=== PATIENT | male | born 1965 | race Caucasian/White ===

== ENCOUNTER 2021-03-14 08:14 | Observation (INO) | payer OTHER, SELFPAY ==
[2021-03-14] VITALS (29 sets, daily range): BP systolic 113–157; BP diastolic 61–105; PULSE 84–163; RESP 11–20; TEMP 36.2–36.6; O2SAT 94–97; BMI 33.3; BMI 32.1
--- NOTE | 2021-03-14 08:27 | ED_ITS ---
HPI - Neuro Symptoms/Deficit General Chief Complaint: Altered Mental Status Stated Complaint: problems with blood pressure, dizzy, burning chest Time Seen by Provider: 03/14/21 08:20 History of Present Illness HPI Narrative: Code stroke called at 8:25 a.m. patient awoke 4:00 a.m. this mor driss with left facial and left arm numbness with left-sided chest pain. Patient states has had this recurrence episode each morning for the past 3 days. His primary care at the [facility] informed him to monitor his blood pressure in the mornings and keep a journal. His home journal does show elevation of his diastolic between 90-110 on average each measurement. Patient has history of diabetes high blood pressure and hypercholesteremia. Family history of stroke and coronary artery disease. Patient has never had stress test. No weakness complaints. No headache. No syncope. Symptoms ongoing since 4:00 a.m. this morning. 4.5 hours ago. He awoke with it. Stress test more than [address] Lu. Related Data Home Medications Medication Instructions Recorded Confirmed cholecalciferol (vitamin D3) 25 25 mcg PO DAILY 03/14/21 03/14/21 mcg (1,000 unit) tablet (Vitamin D3) hydrochlorothiazide 12.5 mg tablet 12.5 mg PO DAILY 03/14/21 03/14/21 metformin 500 mg tablet,extended 500 mg PO DAILY 03/14/21 03/14/21 release 24 hr simvastatin 20 mg tablet 20 mg PO BEDTIME 03/14/21 03/14/21 Previous Rx's Medication Instructions Recorded omeprazole 20 mg tablet,delayed 40 mg PO DAILY 30 Days #30 tab 03/15/21 release sertraline 25 mg tablet 25 mg PO DAILY 30 Days #30 tab 03/15/21 Allergies Allergy/AdvReac Type Severity Reaction Status Date / Time No Known Drug Allergies Allergy Verified 03/14/21 08:39 Review of Systems Review of Systems Narrative: GENERAL: Denies chills, fatigue, malaise, fever, sweats. HEENT: Denies sinus pain, ear pain, sore throat RESPIRATORY: Denies dyspnea, cough CARDIOVASCULAR: Complaint chest pain, denies palpitations GASTROINTESTINAL: Denies nausea, vomiting, abdominal pain : Denies dysuria, frequency, hematuria MUSCULOSKELETAL: denies muscle or bony pain SKIN: Denies rash, skin lesions NEUROLOGIC: Denies weakness, complains of numbness ROS Unobtainable: All systems reviewed & are unremarkable except as noted in HPI and below Patient History Medical History (Updated 03/14/21 @ 21:47 by Hardik Albert DO) GERD (gastroesophageal reflux disease) HLD (hyperlipidemia) Hypertension Pre-diabetes Surgical History (Updated 03/14/21 @ 21:45 by Hardik Albert DO) No pertinent past surgical history Family History (Updated 03/14/21 @ 18:17 by Hardik Albert DO) Sister Diabetes mellitus Father Stroke Other Hypertension Social History household members: spouse Smoking Status: Never smoker alcohol intake: never Exam Narrative Exam Narrative: GENERAL: in no distress, not toxic not dyspneic HEAD: Normocephalic. EYES: Pupils equal round No scleral icterus. No injection no discharge ENT: Mucous membranes moist. NECK: Trachea midline. CARDIOVASCULAR: Regular rate and rhythm without murmurs RESPIRATORY: Clear to auscultation. Breath sounds equal bilaterally. No wheezes, rales, or rhonchi. GASTROINTESTINAL: Abdomen soft, non-tender EXTREMITIES: No gross deformities. BACK: No flank tenderness. NEURO: AOx4. Clear speech no facial droop light touch intact bilateral face, light touch feels different on left arm however intact with left leg. 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 SKIN: Warm and dry PSYCH: Not anxious, is cooperative Initial Vital Signs Initial Vital Signs: Vital Signs Temperature 97.2 F L 03/14/21 08:23 Pulse Rate 102 H 03/14/21 08:23 Respiratory Rate 18 03/14/21 08:23 Blood Pressure 150/105 H 03/14/21 08:23 Pulse Oximetry 96 03/14/21 08:23 Scores NIH Stroke Scale Level of Conciousness: Alert, keenly responsive Ask month/age: Answers both questions correctly. Open/close eyes, close hand: Performs both tasks correctly Best gaze horizontal: Normal Visual armstrong: No visual loss Facial palsy: Normal symetrical movement Left arm drift: No drift for full 10 sec Right arm drift: No drift for full 10 sec Left leg drift: No drift for full 5 sec Right leg drift: No drift for full 5 sec Limb ataxia: Absent Sensory on face/arms/legs: Mild to moderate sensory loss, can tell touch Best language: No aphasia, normal Dysarthria: Normal Extinction or inattention: No abnormality Total NIH Stroke scale score: 1 Course Course Course Narrative: 8:25 a.m.. Code stroke called. 8:46 a.m.. Spoke with radiologist, CT head noncontrast no acute process 8:54 a.m.. Spoke with tele stroke, Dr. Herbert, no tPA. Not a candidate. Onset 4-1/2 hours ago. Mild symptoms. Admit for balance of workup for stroke as well as cardio Decision to Admit Date: 03/14/21 Decision to Admit time: 08:47 Orders Ordered: Discontinued Medications Acetaminophen (Acetaminophen 325 Mg Tablet) 650 mg PO Q6HR PRN PRN Reason: Fever/Mild Pain (1-3) Aspirin (Aspirin 81 Mg Chew Tab) 324 mg PO NOW ONE Stop: 03/14/21 08:48 Last Admin: 03/14/21 09:00 Dose: 324 mg Documented by: LAVERN Atorvastatin Calcium (Atorvastatin 20 Mg Tablet) 10 mg PO BEDTIME [facility] Last Admin: 03/14/21 21:57 Dose: 10 mg Documented by: PADMA Enoxaparin Sodium (Enoxaparin 40 Mg/0.4 Ml Syringe) 40 mg SUBCUT DAILY [facility] Last Admin: 03/15/21 09:32 Dose: 40 mg Documented by: OSILE Hydrochlorothiazide (Hydrochlorothiazide 25 Mg Tablet) 12.5 mg PO DAILY [facility] Last Admin: 03/15/21 09:31 Dose: 12.5 mg Documented by: OSIEL Sodium Chloride (Normal Saline 0.9%) 1,000 mls @ 1,000 mls/hr IV BOLUS ONE Stop: 03/14/21 09:42 Last Infusion: 03/14/21 10:23 Dose: 0 mls/hr Documented by: Admin: 03/14/21 09:02 Dose: 1,000 mls/hr Documented by: LAVERN Metformin HCl (Metformin Xr 500 Mg Tablet) 500 mg PO DAILY [facility] Last Admin: 03/15/21 09:31 Dose: 500 mg Documented by: OSIEL Nitroglycerin (Nitroglycerin Oint 1 Inch/Gm Oint...G.) 0.5 inch TOP NOW ONE Stop: 03/14/21 08:48 Last Admin: 03/14/21 09:00 Dose: 0.5 inch Documented by: LAVERN Ondansetron HCl (Ondansetron 4 Mg/2 Ml Inj) 4 mg IV Q8HR PRN PRN Reason: Nausea And Vomiting Sodium Chloride (Sodium Chloride 0.9% Flush) 10 ml IV PRN PRN PRN Reason: Flush Sodium Chloride (Sodium Chloride 0.9% Flush) 10 ml IV BID EUGENIO Reevaluation(s) Reevaluation #1: Blood pressure 124/76. Chest pain free. Reviewed results with patient and partner, they agree for admit Time: 10:33 Reevaluation #2: Spoke with tele stroke, Dr. Herbert at 8:54 a.m.. No tPA as outside the window as well as low score. Advises admit for balance a workup for TIA/stroke Consultations Consultation #1: Spoke with Dr. Berry, cardiology, advises admission here for stress test Time: 10:31 Consultation #2: Spoke with Dr. Berry again, Cardiology, advises patient to be admitted here and can do the stress portion tomorrow. Aware that the resting portion would not be able to be done until Thursday however if stress portion is abnormal he would be transferred to [facility] for catheterization with no need for resting portion Time: 11:10 Consultation #3: Spoke with hospitalist, Dr. Albert, will admit Time: 12:08 Vital Signs Vital signs: Vital Signs - 8 hr 03/14/21 08:23 03/14/21 09:00 03/14/21 09:15 Temperature 97.2 F L Pulse Rate 102 H 88 85 Respiratory Rate 18 18 Blood Pressure 150/105 H 155/61 H 157/95 H Pulse Oximetry 96 03/14/21 09:25 03/14/21 09:33 03/14/21 09:35 Temperature Pulse Rate 85 84 86 Respiratory Rate 18 19 19 Blood Pressure 150/85 H 150/85 H Pulse Oximetry 96 96 03/14/21 09:40 03/14/21 10:00 03/14/21 10:06 Temperature Pulse Rate 91 H 90 89 Respiratory Rate 17 17 12 Blood Pressure 155/85 H 131/76 Pulse Oximetry 97 96 95 03/14/21 10:20 03/14/21 10:30 03/14/21 10:40 Temperature Pulse Rate 89 91 H 91 H Respiratory Rate 15 17 19 Blood Pressure 124/76 122/78 Pulse Oximetry 95 94 96 03/14/21 11:00 03/14/21 11:20 03/14/21 11:30 Temperature Pulse Rate 91 H 105 H 99 H Respiratory Rate 18 17 20 Blood Pressure 120/81 127/78 127/78 Pulse Oximetry 95 96 95 03/14/21 11:40 03/14/21 12:00 Temperature Pulse Rate 97 H 92 H Respiratory Rate 18 18 Blood Pressure 121/80 125/66 Pulse Oximetry 95 94 MDM - Neuro Symptoms/Deficit Differential Diagnosis Differential diagnosis: Likely cerebrovascular accident, transient cerebral ischemia and other (Stable angina/unstable angina/mi) Lab Data Result diagrams: 03/15/21 05:58 03/15/21 05:58 Labs: Lab Results 03/14/21 03/14/21 03/14/21 Range/Units 08:25 08:25 08:25 WBC 9.7 (4.5-11.0) X10^3/uL RBC 5.81 (4.5-5.9) X10^6/uL Hgb 18.0 H (13.5-17.5) g/dL Hct 53.3 H (41-53) % MCV 91.8 (80-100) fL MCH 30.9 (26-34) PG MCHC 33.7 (30-36) % RDW 13.4 (11.6-14.8) % Plt Count 246 (150-400) X10^3/uL Neut % (Auto) 75.8 H (50-75) % Lymph % (Auto) 17.4 L (25-40) % [place] % (Auto) 6.3 (3-14) % Eos % (Auto) 0.2 L (2-4) % Baso % (Auto) 0.3 (0-2) % Neut # (Auto) 7400 H (0563-3865) /uL Lymph # (Auto) 1700 (7606-1659) /uL [place] # (Auto) 600 (0-900) /uL Eos # (Auto) 0 (0-450) /uL Baso # (Auto) 0 (0-100) /uL PT 13.0 H (10.1-12.7) SECONDS INR 1.2 (0.9-1.3) APTT 33 (26.4-36.2) SECONDS Sodium 140 (137-145) mmol/L Potassium 3.5 (3.4-5.1) mmol/L Chloride 97 L (98-107) mmol/L Carbon Dioxide 32 (22-32) mmol/L BUN 16 (9-20) mg/dL Creatinine 1.22 (0.66-1.25) mg/dL Estimated GFR > 60.0 (>60) mL/min BUN/Creatinine Ratio 13.1 (6-22) Glucose 135 H (70-100) mg/dL Calcium 9.9 (8.4-10.2) mg/dL Total Bilirubin 0.6 (0.2-1.3) mg/dL AST 29 (17-59) IU/L ALT 40 (<50) IU/L Alkaline Phosphatase 67 (38-126) U/L Total Creatine Kinase 86 (55-170) U/L CK-MB (CK-2) TNP CK-MB (CK-2) Rel Index TNP Troponin I < 0.012 (0.01-0.034) ng/mL Total Protein 8.1 (6.3-8.2) g/dL Albumin 4.9 (3.5-5.0) g/dL Globulin 3.2 (1.7-4.1) g/dL Albumin/Globulin Ratio 1.5 (1.0-2.8) SARS-CoV-2 (PCR) (Negative) 03/14/21 03/14/21 Range/Units 08:59 11:30 WBC (4.5-11.0) X10^3/uL RBC (4.5-5.9) X10^6/uL Hgb (13.5-17.5) g/dL Hct (41-53) % MCV (80-100) fL MCH (26-34) PG MCHC (30-36) % RDW (11.6-14.8) % Plt Count (150-400) X10^3/uL Neut % (Auto) (50-75) % Lymph % (Auto) (25-40) % [place] % (Auto) (3-14) % Eos % (Auto) (2-4) % Baso % (Auto) (0-2) % Neut # (Auto) (5455-1397) /uL Lymph # (Auto) (3658-4624) /uL [place] # (Auto) (0-900) /uL Eos # (Auto) (0-450) /uL Baso # (Auto) (0-100) /uL PT (10.1-12.7) SECONDS INR (0.9-1.3) APTT (26.4-36.2) SECONDS Sodium (137-145) mmol/L Potassium (3.4-5.1) mmol/L Chloride (98-107) mmol/L Carbon Dioxide (22-32) mmol/L BUN (9-20) mg/dL Creatinine (0.66-1.25) mg/dL Estimated GFR (>60) mL/min BUN/Creatinine Ratio (6-22) Glucose (70-100) mg/dL Calcium (8.4-10.2) mg/dL Total Bilirubin (0.2-1.3) mg/dL AST (17-59) IU/L ALT (<50) IU/L Alkaline Phosphatase (38-126) U/L Total Creatine Kinase (55-170) U/L CK-MB (CK-2) CK-MB (CK-2) Rel Index Troponin I < 0.012 (0.01-0.034) ng/mL Total Protein (6.3-8.2) g/dL Albumin (3.5-5.0) g/dL Globulin (1.7-4.1) g/dL Albumin/Globulin Ratio (1.0-2.8) SARS-CoV-2 (PCR) Negative (Negative) Point of Care Testing Glucose POC 99 Urine Dip Bedside Urine Glucose Negative Bedside Urine Bilirubin - Negative Bedside Urine Ketone - Negative Urine Specific [place] 1.000 Bedside Urine Occult Blood - Negative Bedside Urine pH 6 Bedside Urine Protein - Negative Bedside Urine Urobilinogen - Negative Bedside Urine Nitrite - Negative Bedside Urine Leukocytes - Negative Esterase Imaging Data Chest x-ray: Radiologist's Impression: [address] [id number] ReportSigned Patient: Rajeev Casanova JMR#: [id number]: 1965Acct:[id number]/Sex: 55 / MDate of Service: 03/14/21Loc: EDAccession Number: [id number] Procedure: XR chest 1V Ordering Provider: Nigel Mayer MD PROCEDURE: XR CHEST 1V INDICATIONS: Chest pain TECHNIQUE: One view of the chest was acquired. COMPARISON: None. FINDINGS: Surgical changes and devices: None. Lungs and pleura: Lungs are clear. No pleural effusions or pneumothorax. Mediastinum: Mediastinal contours appear normal. Heart size is normal. Bones and chest wall: No suspicious bony lesions. Overlying soft tissues appear unremarkable. IMPRESSION: No acute disease. Dictated by: Rocky Brown M.D. on 03/14/2021 at 9:59 Approved by: Rocky Brown M.D. on 03/14/2021 at 10:08 CT scan - head: Radiologist's Impression: [address] [id number] Scan ReportSigned Patient: Rajeev Casanova JMR#: [id number]: 1965Acct:[id number]/Sex: 55 / MDate of Service: 03/14/21Loc: EDAccession Number: [id number] Procedure: CT Stroke Ordering Provider: Nigel Mayer MD PROCEDURE: CT STROKE INDICATIONS: lt side numb TECHNIQUE: Noncontrast 4.5 mm thick angled axial sections acquired from the foramen magnum to the vertex, with coronal reformats. For radiation dose reduction, the following was used: automated exposure control, adjustment of mA and/or kV according to patient size. COMPARISON: None. FINDINGS: Image quality: Excellent. CSF spaces: Basal cisterns are patent. No extra-axial fluid collections. The ventricles are symmetric in size and shape. Brain: No intracranial bleeds or masses. There is cerebral volume loss for age, with resultant ventricular and sulcal prominence. There are periventricular and deep white matter chronic small vessel ischemic changes. There is intracranial internal carotid artery atherosclerosis. Skull and face: Calvarium and visualized facial bones appear intact, without suspicious lesions. Sinuses: Visualized sinuses and mastoids are clear. IMPRESSION: No acute intracranial disease process. Findings telephoned to Dr. Mayer on March 14, 2021 at 8:46 a.m. This study fulfills neurological imaging criteria for inclusion or exclusion of acute stroke therapies based on available published neurological guidelines. Dictated by: Carmen Hickey MD, PhD on 03/14/2021 at 8:44 Approved by: Carmen Hickey MD, PhD on 03/14/2021 at 8:48 We strive to produce accurate, complete, and clear reports of imaging services. To assist us in improving patient care, this report was composed using standard report templates and voice recognition software. Therefore, it may contain abnormal punctuation, misrecognitions, insertions and/or omissions. Occasional wrong-word or sound- alike substitutions may occur. Though we review the report and make efforts to correct it, we do recommend that the report be read carefully in proper context to recognize any text inaccuracies. CTA - brain/neck: Radiologist's Impression: [address] [id number] Scan ReportSigned Patient: Rajeev Casanova JMR#: [id number]: 1965Acct:[id number]/Sex: 55 / MDate of Service: 03/14/21Loc: EDAccession Number: [id number] Procedure: CT angio head and neck Ordering Provider: Nigel Mayer MD PROCEDURE: CT ANGIO HEAD AND NECK INDICATIONS: lt side numb TECHNIQUE: After the administration of intravenous contrast, 1 mm thick sections acquired from the aortic arch through the [place] of Last. Post-contrast 4.5 mm thick sections then re-acquired from the foramen magnum to the vertex. 3-dimensional sswawlp-golfkbjvc-asodfngmkm (MIP) and/or volume rendering reformats were acquired of the central intracranial vasculature and neck separately. COMPARISON: [facility], CT, CT STROKE, 03/14/2021, 8:29. in bilateral FINDINGS: Image quality: Excellent. BRAIN: CSF spaces: Ventricles are normal in size and shape. Basal cisterns are patent. No extra-axial fluid collections. Brain: No midline shift. No intracranial bleeds or masses. Mild cerebral volume loss is again seen. Periventricular and deep white matter chronic small vessel ischemic changes also noted and unchanged. Huynh-white matter interface appears intact. No area of abnormal contrast enhancement is noted. Skull and face: Calvarium and facial bones appear intact, without suspicious lesions. Orbits appear normal. Sinuses: Sinuses and mastoids are clear. HEAD CT ANGIOGRAPHY: Anterior circulation: Intracranial internal carotid arteries are normal in size and flow. The flow within the paired anterior cerebral arteries is normal and symmetric. The flow within the middle cerebral arteries is normal and symmetric. The anterior communicating artery is seen. No aneurysms are seen. Posterior circulation: Visualized portions of the vertebral arteries demonstrate normal caliber, and join to form a normal appearing basilar artery. Flow within the posterior cerebral arteries is normal and symmetric. No aneurysms are seen. NECK CT ANGIOGRAPHY: Carotid system: The great vessels demonstrate a conventional anatomy as they arise from the aortic arch. The origins of the common carotid arteries appear patent. The common carotid arteries demonstrate normal caliber and courses. The bifurcation regions are both widely patent. The internal carotid arteries demonstrate normal calibers and courses. Posterior circulation: The origins of the vertebral arteries both appear widely patent. The more superior extracranial portions of both vertebral arteries also demonstrate normal courses and calibers. They join to form a normal appearing basilar artery. Soft tissues: Visualized neck soft tissues demonstrate no suspicious abnormalities. Bones: No suspicious bony lesions. Visualized cervical spine appears normally aligned. IMPRESSION: 1. No CT evidence of acute intracranial pathology. No area of abnormal contrast enhancement. 2. No hemodynamically significant stenosis or aneurysm is seen in intracranial circulation. 3. N neck arteries. o hemodynamically significant stenosis is seen Any quantitative measurements of stenosis were performed using NASCET criteria. Dictated by: Jonah Larios M.D. on 03/14/2021 at 9:29 Approved by: Jonah Larios M.D. on 03/14/2021 at 9:43 ECG Data Interpretation: Normal sinus rhythm rate 90, no ST elevation, lateral ischemia EKG 2. Repeat EKG at 11:33 a.m.. Normal sinus rhythm, rate 95, no changes from earlier EKG MDM Narrative Medical decision making narrative: Appropriate for admission for cardiac workup as well as balance of workup for TIA/stroke Stroke Core Measures Exclusion Criteria TPA in CVA: Symptom Onset >3 or 4.5 Hours Discharge Plan Departure Patient Disposition: Admitted as Observation Clinical Impression: Paresthesia and pain of left extremity Chest pain Qualifiers: Chest pain type: unspecified Qualified Code(s): R07.9 - Chest pain, unspecified Admit Date/Time: 03/14/21 12:08 Admit Provider: Hardik Albert
[2021-03-14 08:37] LABS: Add Manual Diff / Slide Review NO; Basophils Absolute Auto 0 /uL (0-100); Basophils Percent Auto 0.3 % (0-2); Eosinophils Absolute Auto 0 /uL (0-450); Eosinophils Percent Auto 0.2 % (2-4); Hematocrit 53.3 % (41-53); Lymphocytes Absolute Auto 1700 /uL (1100-4500); Lymphocytes Percent Auto 17.4 % (25-40); Mean Corpuscular HGB Conc 33.7 % (30-36); Mean Corpuscular Hemoglobin 30.9 PG (26-34); Mean Corpuscular Volume 91.8 fL (80-100); Monocytes Absolute Auto 600 /uL (0-900); Monocytes Percent Auto 6.3 % (3-14); Neutrophils Absolute Auto 7400 /uL (1500-7000); Neutrophils Percent Auto 75.8 % (50-75); Platelet Count 246 X10^3/uL (150-400); Red Blood Cell Count 5.81 X10^6/uL (4.5-5.9); Red Cell Distribution Width 13.4 % (11.6-14.8); White Blood Cell Count 9.7 X10^3/uL (4.5-11.0)
[2021-03-14 08:44] LABS: INR 1.2 (0.9-1.3)
[2021-03-14 08:47] LABS: Alanine Aminotransferase 40 IU/L (<50); Albumin 4.9 g/dL (3.5-5.0); Albumin Globulin Ratio 1.5 (1.0-2.8); Alkaline Phosphatase 67 U/L (38-126); Aspartate Aminotransferase 29 IU/L (17-59); BUN Creatinine Ratio 13.1 (6-22); Bilirubin Total 0.6 mg/dL (0.2-1.3); Blood Urea Nitrogen 16 mg/dL (9-20); Calcium 9.9 mg/dL (8.4-10.2); Carbon Dioxide 32 mmol/L (22-32); Chloride 97 mmol/L (98-107); Creatine Kinase 86 U/L (55-170); Estimated Glomerular Filt Rate > 60.0 mL/min (>60); Globulin 3.2 g/dL (1.7-4.1); Glucose 135 mg/dL (70-100); HEMOLYSIS < 15 (0-50); PTT Partial Thromboplastin Tim 33 SECONDS (26.4-36.2); Potassium 3.5 mmol/L (3.4-5.1); Sodium 140 mmol/L (137-145); Total Protein 8.1 g/dL (6.3-8.2)
[2021-03-14 08:59] LABS: Troponin I < 0.012 ng/mL (0.01-0.034)
[2021-03-14] MEDS: NITROGLYCERIN OINT 1 INCH/GM OINT...G. 0.5 INCH TOP (09:00)
[2021-03-14] MEDS: ASPIRIN 81 MG CHEW TAB 324 MG PO (09:00)
[2021-03-14] MEDS: SODIUM CHLORIDE 0.9% 1,000 ML 1000 ML IV (09:02)
--- NOTE | 2021-03-14 09:41 | DI.RAD.S_ITS ---
PROCEDURE: XR CHEST 1V INDICATIONS: Chest pain TECHNIQUE: One view of the chest was acquired. COMPARISON: None. FINDINGS: Surgical changes and devices: None. Lungs and pleura: Lungs are clear. No pleural effusions or pneumothorax. Mediastinum: Mediastinal contours appear normal. Heart size is normal. Bones and chest wall: No suspicious bony lesions. Overlying soft tissues appear unremarkable. IMPRESSION: No acute disease. Dictated by: Rocky Brown M.D. on 03/14/2021 at 9:59 Approved by: Rocky Brown M.D. on 03/14/2021 at 10:08
[2021-03-14 09:58] LABS: COVID19 - ADMIT (NP swab/PCR) Negative (Negative)
[2021-03-14 12:01] LABS: Troponin I < 0.012 ng/mL (0.01-0.034)
--- NOTE | 2021-03-14 15:02 | DI.MRI.S_ITS ---
PROCEDURE: MR HEAD/BRAIN WO CON INDICATIONS: r/o CVA, paresthesias TECHNIQUE: Non-contrast axial T1 spin echo, axial T2 fast spin echo, sagittal and axial FLAIR, coronal T2 fast spin echo, axial gradient echo, axial diffusion and ADC through the brain. COMPARISON: [facility], CT, CT ANGIO HEAD AND NECK, 03/14/2021, 8:29. [facility], CT, CT STROKE, 03/14/2021, 8:29. FINDINGS: Image quality: Excellent. CSF spaces: Ventricles appear symmetric in size and shape. Basal cisterns are patent. No extra-axial fluid collections. Brain: No intracranial bleeds or mass effects. There is mild cerebral volume loss for age. There are mild periventricular and deep white matter chronic small vessel ischemic changes. Brainstem appears normal. Diffusion-weighted images show no acute ischemic insults. No chronic ischemic insults. Normal intravascular flow voids are present. Skull and face: Calvarial bone marrow is normal in signal. Orbits are normal. Sinuses: Sinuses and mastoids are clear. IMPRESSION: 1. No acute intracranial disease process. 2. No areas of acute or chronic infarction. 3. No abnormal intracranial mass or mass effect. 4. No intracranial hemorrhage. 5. Mild, diffuse cerebral volume loss. 6. Mild periventricular and subcortical white matter chronic microvascular ischemic change. Dictated by: Carmen Hickey MD, PhD on 03/14/2021 at 17:24 Approved by: Carmen Hickey MD, PhD on 03/14/2021 at 17:28
--- NOTE | 2021-03-14 15:03 | DI.NM.S_ITS ---
PROCEDURE: NM BRIDGER PERF SPECT REST & STR Rest and exercise myocardial perfusion SPECT with gated imaging and ejection fraction RADIOPHARMACEUTICAL: 12.5 mCi Tc-99m sestamibi IV at rest and 24.1 mCi Tc-99m sestamibi IV at peak exercise. A one day-protocol was performed. INDICATIONS: chest pain TECHNIQUE: Radiopharmaceutical was injected at peak stress test, and also at rest. SPECT images were obtained. SPECT myocardial perfusion images were displayed in short axis, horizontal long axis, and vertical long axis views. Gated images were reviewed using [employer] software. COMPARISON: None. CARDIAC STRESS: A standard Dominguez treadmill exercise tolerance test was performed by the patient under the supervision of an attending staff. The patient exercised for 7 minutes and 16 seconds; functional aerobic impairment (ERINN) is +19%. Hemodynamic data: There is normal blood pressure and heart rate response to exercise stress. Patient achieved 95% of maximum predicted heart rate at peak exercise. Symptoms: Patient denied chest pain during exercise. EKG: Resting ECG showed sinus rhythm with mild to moderate horizontal-downsloping ST depressions in the inferior and anterolateral leads. No new ischemic changes with stress or during recovery; no ectopy. FINDINGS: Raw data: There is good myocardial labeling by radiotracer. No significant motion artifacts. Left ventricle function: Gated images demonstrate normal left ventricle wall thickening. No segmental wall motion abnormality. No transient ischemic dilation; TID is 0.62 (normal less than 1.3). The left ventricle resting end-diastolic volume is 64 mL. Left ventricle stress ejection fraction is 95%; normal values are above 45%. Myocardial perfusion: There is normal distribution of activity in the left and right ventricular myocardium. No fixed or reversible perfusion defects. IMPRESSION: Low risk, normal treadmill nuclear stress test 1) No perfusion evidence of ischemia or infarction. 2) Normal left ventricular size, wall motion, and systolic function (EF post stress 95%). 3) No ischemic ST changes with exercise (baseline ST changes persistent during the study). 4) No angina during the study. 5) Reduced exercise tolerance (10.1 METs, FA+ 19%). Target heart rate achieved. Appropriate BP response to exercise. 6) No prior nuclear stress test available for comparison. Dictated by: Jose Adam MD on 03/15/2021 at 16:39 Approved by: Jose Adam MD on 03/15/2021 at 16:43
--- NOTE | 2021-03-14 15:03 | DI.ECHO.S_ITS ---
[facility] +---------+ : : [address] : [address] : : : : [id number] : : : : Phone: [phone]+ Echocardiogram Report + + :Name: CARLOS MURILLO Study Date: 03/15/2021 Height: 69 in : :[facility] ReadingLocation: Weight: 217 lb : : Gender: Male BSA: 2.1 m2 : :: 1965 Age: 55 yrs BP: 120/77 mmHg: :Reason For Study: Chest pain : :Ordering Physician: KELECHI, : :GABE FLEMING Performed By: Raymond Ventura : :Referring: GABE LORENZ : + + Interpretation Summary Left ventricular systolic function remains normal with an estimated ejection fraction of 60 to 65% without any focal wall motion abnormality. Left ventricular size and wall thickness appear normal with probable normal diastolic function and normal filling pressures. There has been no significant change since the previous study. The right ventricle is at the upper limits of normal in size with normal systolic function and appears unchanged from the previous study. Right ventricular systolic pressure cannot be estimated but CVP is likely around 3 mmHg. Both atria are small to normal in size and are unchanged from the previous exam. There is mild pulmonic valve regurgitation that is unchanged but no other significant valvular abnormality. Procedure: A two-dimensional transthoracic echocardiogram with color flow and Doppler was performed. The study quality was technically adequate. Comparison is made with the echocardiogram of 08/23/2015. The patient was in sinus rhythm with heart rates between 74-93 bpm during the exam. Left Ventricle: The left ventricle appears normal in size, wall thickness, and systolic function without any focal wall motion abnormalities. The ejection fraction is estimated to be 60-65%. Diastolic parameters suggest probable normal left ventricular diastolic function and normal filling pressures. There has been no significant change since the previous study. Right Ventricle: The right ventricle is at the upper limits of normal in size. The right ventricular systolic function is normal. This is unchanged compared to the previous study. Atria: Both atria are normal in size. This is unchanged compared to the previous study. There is no Doppler evidence for an interatrial shunt. Mitral Valve: The mitral valve is normal in structure and function. There is no mitral regurgitation noted. Aortic Valve: The aortic valve is normal in structure and function. The aortic valve opens well. No aortic regurgitation is present. Tricuspid Valve: The tricuspid valve is normal in structure and function. There is trace tricuspid regurgitation. Pulmonary artery pressures cannot be estimated because of the lack of a measurable TR jet velocity but the IVC suggests a CVP of around 3 mmHg. Pulmonic Valve: The pulmonic valve is normal in structure and function. There is mild pulmonic regurgitation. This is unchanged compared to the previous study. There is no other significant valvular heart disease. Great Vessels: The aortic root is normal size. The dimensions of the ascending aorta are normal. The IVC is of normal diameter and collapses greater than 50% with a sniff. This suggests a low right atrial pressure of 3 mm Hg. Pericardium/ Pleura There is no pericardial effusion. There is no pleural effusion. MMode/2D Measurements & Calculations LVIDd: 4.1 cm LVOT diam: 2.2 cm LVIDs: 2.7 cm Ao root diam: 3.3 cm FS: 35.3 % asc Aorta Diam: 3.4 cm IVSd: 0.86 cm LVPWd: 0.96 cm LV novak. diameter/BSA (cm/m^2): 1.9 LV sys. diameter/BSA (cm/m^2): 1.2 LA A2 area: 15.9 cm2 RA long axis: 3.7 cm LA A4 area: 9.6 cm2 RA area: 9.1 cm2 LA length (vol): 4.4 cm RA vol: 19.0 ml LA vol: 29.3 ml RA : 8.9 ml/m2 LA vol index: 13.7 ml/m2 TAPSE: 2.0 cm Doppler Measurements & Calculations Ao V2 max: 93.6 cm/sec LVOT Max Ruiz: 69.8 cm/sec Ao V2 mean: 67.4 cm/sec LV V1 max P.9 mmHg Ao max P.5 mmHg LV V1 VTI: 12.5 cm Ao mean P.0 mmHg DINESH(I,D): 2.9 cm2 Ao V2 VTI: 16.2 cm DINESH(V,D): 2.8 cm2 sev ratio: 0.77 DINESH indexed to BSA (cm^2/m^2): 1.4 MV E max ruiz: 59.7 cm/sec PA pr(Accel): 49.9 mmHg MV A max ruiz: 59.3 cm/sec MV E/A: 1.0 Med Peak E' Ruiz: 6.3 cm/sec E/E' med: 9.5 Lat Peak E' Ruiz: 10.0 cm/sec E/E' lat: 6.0 E/e' average: 7.7 MV dec time: 0.23 sec SV(MALGORZATA): 47.0 ml Reading Physician:12:03 PM
--- NOTE | 2021-03-14 15:41 | PC.NURSE ---
Report received by Klarissa coordinator and patient was admitted to room 214 from ER. This RN assisted with admission to Acute care, patient alert and answering questions. Patient endorses some burning feeling in the middle of his chest which remains unresolved at this time, but patients he has eaten nothing and is hungry. Dr. Albert aware of patient's arrival and orders place and discussed with oncoming evening shift RN. Patient instructed to have no caffeine for test tomorrow, and nothing to eat or drink after midnight. Instructed on calling for assistance getting up, and use of call light. Bed alarm activated for safety and call light placed within reach.
--- NOTE | 2021-03-14 18:15 | P.HP_ITS ---
History of Present Illness History of Present Illness Date Patient Seen: 03/14/21 Time Patient Seen: 17:00 Chief complaint: problems with blood pressure, dizzy, burning chest Narrative: This is a 55 year old male with a past medical history of hypertension, HLD, pre-diabetes, GERD, BRADEN who presented to the ER today with continued chest pain. Patient states for the past week he has had recurrent chest pains in the morning. Chest pain is substernal, non-radiating and pressure like or burning. He has difficulty describing the pain quality exactly. He also notices that his heart beat is fast around 120, and he also feels left arm and facial tingling usually at the same time. It was much worse this morning and this is what brought him to the ER. He states he went to another ER about 2 weeks ago with a headache and was diagnosed with a migraine or possibly anxiety and sent home. His chest pain has improved each day after the morning. It is not associated with exertion though he sometimes notices it at work but it is definitely worse at home. He denies any profound stressors at home. He denies nausea but possibly feels diaphoretic, not entirely clear. No vomiting, abdominal pain. Did notice a tingling episode on his left leg today in a small area. He denies any numbness, weakness, slurred speech or facial droop. No visual changes. He reports prior likely EKG stress testing about 6 years ago and echocardiogram with Dr. Lu which he states he was recommended to start on BP medication and was also referred to a sleep study where he was diagnosed with BRADEN. He uses CPAP at home without issues currently. HEART score is 4-5 or intermediate risk. CXR was unremarkable, EKG non-specific ST/T wave changes, and troponin was negative. Admitted for further evaluation of chest pain and to rule out possible ACS. Patient History Medical History (Updated 03/14/21 @ 21:47 by Hardik Albert DO) GERD (gastroesophageal reflux disease) HLD (hyperlipidemia) Hypertension Pre-diabetes Surgical History (Updated 03/14/21 @ 21:45 by Hardik Albert DO) No pertinent past surgical history Family & Social History Family History (Updated 03/14/21 @ 18:17 by Hardik Albert DO) Sister Diabetes mellitus Father Stroke Other Hypertension Social History: household members spouse Prior Living Arrangements House Safety & Behavioral: Feels Safe in Current Yes Environment Been Physically Hurt or No Threatened By a Person Suicidal Ideation Description None Suicide Plan Description No Plan Tobacco & Substance use: Smoking Status Never smoker alcohol intake never Substance Use Type does not use Meds Home Medications and Allergies Home Medications Medication Instructions Recorded Confirmed Type cholecalciferol (vitamin D3) 25 25 mcg PO DAILY 03/14/21 03/14/21 History mcg (1,000 unit) tablet (Vitamin D3) hydrochlorothiazide 12.5 mg tablet 12.5 mg PO DAILY 03/14/21 03/14/21 History metformin 500 mg tablet,extended 500 mg PO DAILY 03/14/21 03/14/21 History release 24 hr omeprazole 20 mg tablet,delayed 20 mg PO DAILY 03/14/21 03/14/21 History release simvastatin 20 mg tablet 20 mg PO BEDTIME 03/14/21 03/14/21 History Allergies Allergy/AdvReac Type Severity Reaction Status Date / Time No Known Drug Allergies Allergy Verified 03/14/21 08:39 Review of Systems Review of Systems Narrative: All other systems reviewed with the patient and are negative unless otherwise stated. Exam Vital Signs (past 8 hours): - 03/14/21 10:20 03/14/21 10:30 03/14/21 10:40 Temperature Pulse Rate 89 91 H 91 H Respiratory Rate 15 17 19 Blood Pressure 124/76 122/78 Pulse Oximetry 95 94 96 03/14/21 11:00 03/14/21 11:20 03/14/21 11:30 Temperature Pulse Rate 91 H 105 H 99 H Respiratory Rate 18 17 20 Blood Pressure 120/81 127/78 127/78 Pulse Oximetry 95 96 95 03/14/21 11:40 03/14/21 12:00 03/14/21 12:20 Temperature Pulse Rate 97 H 92 H 93 H Respiratory Rate 18 18 15 Blood Pressure 121/80 125/66 117/81 Pulse Oximetry 95 94 95 03/14/21 12:30 03/14/21 12:40 03/14/21 13:00 Temperature Pulse Rate 92 H 88 87 Respiratory Rate 19 11 L 15 Blood Pressure 113/80 115/80 Pulse Oximetry 95 96 94 03/14/21 13:20 03/14/21 13:30 03/14/21 14:05 Temperature 97.7 F Pulse Rate 86 163 H 95 H Respiratory Rate 15 14 Blood Pressure 120/77 133/82 Pulse Oximetry 96 95 03/14/21 16:29 Temperature 97.1 F L Pulse Rate 102 H Respiratory Rate 18 Blood Pressure 137/87 Pulse Oximetry 97 Oxygen Delivery Method Room Air Oxygen Flow Rate 0 Narrative Exam Narrative: GENERAL APPEARANCE: Well developed, well nourished, in no acute distress. Obese with BMI 32.1. SKIN: Inspection of the skin reveals no rashes, ulcerations or petechiae. HEENT: Normocephalic atraumatic, extraocular muscles are intact, oropharynx is clear and mucous membranes are moist, neck is supple without adenopathy NECK: Supple and symmetric. There was no thyroid enlargement, and no tenderness, or masses were felt. CHEST: Normal AP diameter and normal contour without any kyphoscoliosis. LUNGS: Auscultation of the lungs revealed no wheezes, rhonchi, or rales. CARDIOVASCULAR: There was a regular rate and rhythm without any murmurs, gallops, rubs. Peripheral pulses were 2+ and symmetric. ABDOMEN: Soft non-tender, and non-distended. MUSCULOSKELETAL: There was no tenderness or effusions noted. Muscle strength and tone were normal. EXTREMITIES: No cyanosis, clubbing or edema. NEUROLOGIC: Alert and oriented x 3. Normal affect. Strength is +5/5 in the Upper Extremities and Lower Extremities Bilaterally. Objective ECG Impression: borderline st depression / t wave inversion in precordial leads, no prior tracing for review. Labs Result Diagrams: 03/14/21 08:25 03/14/21 08:25 Labs: Laboratory Results - last 24 hr 03/14/21 03/14/21 03/14/21 08:25 08:25 08:25 WBC 9.7 RBC 5.81 Hgb 18.0 H Hct 53.3 H MCV 91.8 MCH 30.9 MCHC 33.7 RDW 13.4 Plt Count 246 Neut % (Auto) 75.8 H Lymph % (Auto) 17.4 L [place] % (Auto) 6.3 Eos % (Auto) 0.2 L Baso % (Auto) 0.3 Neut # (Auto) 7400 H Lymph # (Auto) 1700 [place] # (Auto) 600 Eos # (Auto) 0 Baso # (Auto) 0 PT 13.0 H INR 1.2 APTT 33 Sodium 140 Potassium 3.5 Chloride 97 L Carbon Dioxide 32 BUN 16 Creatinine 1.22 Estimated GFR > 60.0 BUN/Creatinine Ratio 13.1 Glucose 135 H Calcium 9.9 Total Bilirubin 0.6 AST 29 ALT 40 Alkaline Phosphatase 67 Total Creatine Kinase 86 CK-MB (CK-2) TNP CK-MB (CK-2) Rel Index TNP Troponin I < 0.012 Total Protein 8.1 Albumin 4.9 Globulin 3.2 Albumin/Globulin Ratio 1.5 SARS-CoV-2 (PCR) 03/14/21 03/14/21 08:59 11:30 WBC RBC Hgb Hct MCV MCH MCHC RDW Plt Count Neut % (Auto) Lymph % (Auto) [place] % (Auto) Eos % (Auto) Baso % (Auto) Neut # (Auto) Lymph # (Auto) [place] # (Auto) Eos # (Auto) Baso # (Auto) PT INR APTT Sodium Potassium Chloride Carbon Dioxide BUN Creatinine Estimated GFR BUN/Creatinine Ratio Glucose Calcium Total Bilirubin AST ALT Alkaline Phosphatase Total Creatine Kinase CK-MB (CK-2) CK-MB (CK-2) Rel Index Troponin I < 0.012 Total Protein Albumin Globulin Albumin/Globulin Ratio SARS-CoV-2 (PCR) Negative Assessment & Plan Assessment & Plan narrative: This is a 55 year old male with a past medical history of hypertension, HLD, pre-diabetes, GERD, BRADEN who presented to the ER today with continued chest pain, admitted for further evaluation. 1. Chest pain, present on admission - concern for underlying ischemia. EKG with non-specific ST/T wave abnormality and with multiple risk factors. Differential does include GERD and anxiety given paresthesias. - trend troponins, get TTE and stress test tomorrow. - continue home BP medications. - consider increasing home PPI. Consider trial of ativan or benzo acutely if symptoms return. - risk stratify further with A1c, TSH, lipids. Check ESR and CRP given somewhat atypical presentation and headaches. 2. facial and L UE paresthesias - check MRI to rule out CVA or hypertensive disease. CT and CTA head and neck were unremarkable. - manage BP, may be cardiac symptoms. could be related to anxiety as well. 3. HTN, chronic - continue home diuretic, adjust as needed based on TTE and stress testing. 4. HLD, chronic - continue home statin 5. Pre-diabetes - continue home metformin 6. obesity with BMI 32. - lifestyle modifications recommended, PCP follow up. Contributes to underlying HTN, HLD, pre-diabetes, and increases risk of cardiac disease. 7. GERD - continue PPI, consider increasing as noted above. 8. BRADEN - can use home cpap if brought in. code: Full as discussed with the patient. Surrogate decision maker he states is his spouse. Dispo: admit under observation DVT: Lovenox I have utilized all available immediate resources to obtain, update, or review the patient's current medications. COVID-19 COVID-19 status: Negative Quality VTE Deep Vein Thrombosis/Pulmonary Embolism Present on Admission: No MIPS - Admit I confirm the patient?s Advance Care Plan is present, Code status is documented, Surrogate decision maker is in patient?s record [If Yes, STOP here]: Yes
[2021-03-14 19:36] LABS: Troponin I < 0.012 ng/mL (0.01-0.034)
[2021-03-14] MEDS: ATORVASTATIN 20 MG TABLET 10 MG PO (21:57)
[2021-03-15] VITALS (9 sets, daily range): BP systolic 106–126; BP diastolic 68–86; PULSE 86–95; RESP 14–18; TEMP 35.9–36.7; O2SAT 93–97
[2021-03-15 06:20] LABS: Add Manual Diff / Slide Review NO; Basophils Absolute Auto 0 /uL (0-100); Basophils Percent Auto 0.2 % (0-2); Eosinophils Absolute Auto 100 /uL (0-450); Hematocrit 47.9 % (41-53); Lymphocytes Absolute Auto 1900 /uL (1100-4500); Lymphocytes Percent Auto 24.3 % (25-40); Mean Corpuscular HGB Conc 33.4 % (30-36); Mean Corpuscular Hemoglobin 30.7 PG (26-34); Mean Corpuscular Volume 91.8 fL (80-100); Monocytes Absolute Auto 500 /uL (0-900); Monocytes Percent Auto 6.8 % (3-14); Neutrophils Absolute Auto 5400 /uL (1500-7000); Neutrophils Percent Auto 67.7 % (50-75); Platelet Count 214 X10^3/uL (150-400); Red Blood Cell Count 5.22 X10^6/uL (4.5-5.9); Red Cell Distribution Width 13.5 % (11.6-14.8); White Blood Cell Count 7.9 X10^3/uL (4.5-11.0)
[2021-03-15 06:29] LABS: Alanine Aminotransferase 33 IU/L (<50); Albumin 4.1 g/dL (3.5-5.0); Albumin Globulin Ratio 1.6 (1.0-2.8); Alkaline Phosphatase 52 U/L (38-126); Aspartate Aminotransferase 25 IU/L (17-59); BUN Creatinine Ratio 15.9 (6-22); Bilirubin Total 0.5 mg/dL (0.2-1.3); Blood Urea Nitrogen 18 mg/dL (9-20); Calcium 9.3 mg/dL (8.4-10.2); Carbon Dioxide 32 mmol/L (22-32); Chloride 100 mmol/L (98-107); Cholesterol 137 mg/dL (140-199); Estimated Glomerular Filt Rate > 60.0 mL/min (>60); Globulin 2.5 g/dL (1.7-4.1); Glucose 116 mg/dL (70-100); HDL Cholesterol 31 mg/dL (40-60); HEMOLYSIS < 15 (0-50); LDL Cholesterol Calculated 90 mg/dL (<100); Magnesium 2.1 mg/dL (1.6-2.3); Potassium 3.7 mmol/L (3.4-5.1); Sodium 139 mmol/L (137-145); Total Protein 6.6 g/dL (6.3-8.2); Triglycerides 80 mg/dL (35-150)
[2021-03-15 06:31] LABS: C-Reactive Protein Quant < 0.5 mg/dL (<1.0)
[2021-03-15 06:39] LABS: Troponin I < 0.012 ng/mL (0.01-0.034)
[2021-03-15 06:42] LABS: Hemoglobin A1C% w Est Avg Glu 5.7 % (4.0-6.0)
[2021-03-15 06:55] LABS: TSH w/ Reflex to FT4 2.37 uIU/mL (0.47-4.68)
[2021-03-15 06:56] LABS: Erythrocyte Sedimentation Rate 3 MM/HR (0-15)
[2021-03-15] MEDS: METFORMIN XR 500 MG TABLET PO (09:31)
[2021-03-15] MEDS: hydroCHLOROthiazide 25 MG TABLET 12.5 MG PO (09:31)
[2021-03-15] MEDS: ENOXAPARIN 40 MG/0.4 ML SYRINGE SUBCUT (09:32)
--- NOTE | 2021-03-15 13:55 | CM.DANOTE ---
Discharge Planning/Care Management DCP: assessment: case received, EMR reviewed and POC discussed in Team Rounds. Dr. Albert stated that stress test was pending. He stated that depending on results, pt would either be able to d/c home later today or a transfer to higher level of cardiology care would be needed. Pt is a 55 year old male who admitted yesterday afternoon to care of hospitalist team. PCP: Peter Trujillo/[facility] Payer: [facility] DCP team will check in tomorrow if pt is still here and follow prn. Advanced directive, confirm from FAMILY Start: 03/14/21 14:21 Freq: Q24H Status: Active Protocol: Document 03/14/21 14:21 SFP (Rec: 03/14/21 14:22 SFP [id number]) Advance Directive, confirm on record Time 14:22 Person contacted patient Copy received No CM Discharge Assessment Start: 03/15/21 13:53 Freq: Status: Active Protocol: Document 03/15/21 13:54 ITV (Rec: 03/15/21 13:54 ITV [id number]) Discharge Planning Assessment Advance Directives? No Advance Directives on File No History Provided By Medical Record Prior Living Arrangements House Household Members spouse Independent with ADL's Yes Is patient alert and oriented? Yes DME Already Rented / Owned Other Comment uses CPAP at home for BRADEN
--- NOTE | 2021-03-15 17:06 | P.DS_ITS ---
History of Present Illness History of Present Illness Date Patient Seen: 03/15/21 Time Patient Seen: 17:06 Chief complaint: problems with blood pressure, dizzy, burning chest Narrative: This is a 55 year old male with a past medical history of hypertension, HLD, pre-diabetes, GERD, BRADEN who presented to the ER today with continued chest pain. Patient states for the past week he has had recurrent chest pains in the morning. Chest pain is substernal, non-radiating and pressure like or burning. He has difficulty describing the pain quality exactly. He also notices that his heart beat is fast around 120, and he also feels left arm and facial tingling usually at the same time. It was much worse this morning and this is what brought him to the ER. He states he went to another ER about 2 weeks ago with a headache and was diagnosed with a migraine or possibly anxiety and sent home. His chest pain has improved each day after the morning. It is not associated with exertion though he sometimes notices it at work but it is definitely worse at home. He denies any profound stressors at home. He denies nausea but possibly feels diaphoretic, not entirely clear. No vomiting, abdominal pain. Did notice a tingling episode on his left leg today in a small area. He denies any numbness, weakness, slurred speech or facial droop. No visual changes. He reports prior likely EKG stress testing about 6 years ago and echocardiogram with Dr. Lu which he states he was recommended to start on BP medication and was also referred to a sleep study where he was diagnosed with BRADEN. He uses CPAP at home without issues currently. HEART score is 4-5 or intermediate risk. CXR was unremarkable, EKG non-specific ST/T wave changes, and troponin was negative. Admitted for further evaluation of chest pain and to rule out possible ACS. Discharge Providers Provider Date of admission: 03/14/21 12:08 Discharge Date: 03/15/21 Primary care physician: Peter Trujillo MD Consults: 03/14/21 08:26 Consult with [facility] Comment: Physician Instructions: Contact [facility] for consult Discharge provider: Hardik Albert DO Summary Hospital Course Discharge Diagnosis: 1. Chest pain, present on admission 2. facial and L UE paresthesias 3. HTN, chronic 4. HLD, chronic 5. Pre-diabetes 6. obesity with BMI 32. 7. GERD 8. anxiety Hospital Course: This is a 55 year old male with a past medical history of hypertension, HLD, pre-diabetes, GERD, BRADEN who presented to the ER with continued chest pains over the preceeding week. He was admitted for further evaluation given intermediate HEART score for stress testing. His stress testing and echocardiogram were unremarkable, with nuclear stress evaluation being a low risk study. He had a stroke evaluation given his symptoms and risk factors which were negative, including MRI. Symptoms may be related to anxiety based on discharge conversation and examination, or possibly due to reflux or difficulties with his CPAP machine. His omeprazole dose is recommended to be in creased, he was agreeable to starting sertraline for anxiety, and recommended to follow up for evaluation with his sleep provider for possible settings adjustment of his CPAP machine. Recommend follow up with his PCP in a few weeks for further medication adjustments, including possible increases in BP medications and to check effectiveness of SSRI. His blood pressures when at rest were controlled over the course of his hospitalization. Exam Vital Signs (past 8 hours): - 03/15/21 10:00 03/15/21 12:00 03/15/21 14:00 Temperature 97.6 F Pulse Rate 90 Respiratory Rate 14 Blood Pressure 124/81 Pulse Oximetry 95 96 96 03/15/21 15:59 Temperature 98.0 F Pulse Rate 95 H Respiratory Rate 18 Blood Pressure 126/86 Pulse Oximetry 97 Oxygen Delivery Method Room Air Oxygen Flow Rate 0 Narrative Exam Narrative: GENERAL APPEARANCE: Well developed, well nourished, in no acute distress. Mildly anxious. Obese with BMI 32.1. Chest: equal chest rise bilaterally. CV: tachycardic with regular rhythm. abdomen: non-distended. EXTREMITIES: No cyanosis, clubbing or edema. NEUROLOGIC: Alert and oriented x 3. Normal affect. Strength is +5/5 in the Upper Extremities and Lower Extremities Bilaterally. occasional eye twitching on the left. mildly anxious and pressured speech at time. Objective Labs Result Diagrams: 03/15/21 05:58 03/15/21 05:58 Labs: Laboratory Results - last 24 hr 03/14/21 03/15/21 03/15/21 18:47 05:58 05:58 WBC 7.9 RBC 5.22 Hgb 16.0 Hct 47.9 MCV 91.8 MCH 30.7 MCHC 33.4 RDW 13.5 Plt Count 214 Neut % (Auto) 67.7 Lymph % (Auto) 24.3 L [place] % (Auto) 6.8 Eos % (Auto) 1.0 L Baso % (Auto) 0.2 Neut # (Auto) 5400 Lymph # (Auto) 1900 [place] # (Auto) 500 Eos # (Auto) 100 Baso # (Auto) 0 ESR Sodium 139 Potassium 3.7 Chloride 100 Carbon Dioxide 32 BUN 18 Creatinine 1.13 Estimated GFR > 60.0 BUN/Creatinine Ratio 15.9 Glucose 116 H Hemoglobin A1c Calcium 9.3 Magnesium 2.1 Total Bilirubin 0.5 AST 25 ALT 33 Alkaline Phosphatase 52 Troponin I < 0.012 C-Reactive Protein Total Protein 6.6 Albumin 4.1 Globulin 2.5 Albumin/Globulin Ratio 1.6 Triglycerides 80 Cholesterol 137 L LDL Cholesterol, Calc 90 HDL Cholesterol 31 L TSH 03/15/21 03/15/21 03/15/21 05:58 05:58 05:58 WBC RBC Hgb Hct MCV MCH MCHC RDW Plt Count Neut % (Auto) Lymph % (Auto) [place] % (Auto) Eos % (Auto) Baso % (Auto) Neut # (Auto) Lymph # (Auto) [place] # (Auto) Eos # (Auto) Baso # (Auto) ESR 3 Sodium Potassium Chloride Carbon Dioxide BUN Creatinine Estimated GFR BUN/Creatinine Ratio Glucose Hemoglobin A1c 5.7 Calcium Magnesium Total Bilirubin AST ALT Alkaline Phosphatase Troponin I C-Reactive Protein Total Protein Albumin Globulin Albumin/Globulin Ratio Triglycerides Cholesterol LDL Cholesterol, Calc HDL Cholesterol TSH 2.37 03/15/21 03/15/21 05:58 05:58 WBC RBC Hgb Hct MCV MCH MCHC RDW Plt Count Neut % (Auto) Lymph % (Auto) [place] % (Auto) Eos % (Auto) Baso % (Auto) Neut # (Auto) Lymph # (Auto) [place] # (Auto) Eos # (Auto) Baso # (Auto) ESR Sodium Potassium Chloride Carbon Dioxide BUN Creatinine Estimated GFR BUN/Creatinine Ratio Glucose Hemoglobin A1c Calcium Magnesium Total Bilirubin AST ALT Alkaline Phosphatase Troponin I < 0.012 C-Reactive Protein < 0.5 Total Protein Albumin Globulin Albumin/Globulin Ratio Triglycerides Cholesterol LDL Cholesterol, Calc HDL Cholesterol TSH [facility] Medical History (Updated 03/14/21 @ 21:47 by Hardik Albert DO) GERD (gastroesophageal reflux disease) HLD (hyperlipidemia) Hypertension Pre-diabetes Surgical History (Updated 03/14/21 @ 21:45 by Hardik Albert DO) No pertinent past surgical history Family History (Updated 03/14/21 @ 18:17 by Hardik Albert DO) Sister Diabetes mellitus Father Stroke Other Hypertension Social History household members: spouse Smoking Status: Never smoker alcohol intake: never Discharge Plan Discharge Plan Patient Disposition: Home Provider Discharge Comment: You were admitted to the hospital with chest pain and tingling sensations. stress testing was unremarkable. MRI did not show a stroke. We discussed starting a medication for anxiety, please follow up with your PCP to possibly increase dosing if it is effective. He/she can also potentially change BP medications if needed. I also recommend increasing your omeprazole to 40 mg daily. Please follow up with your sleep specialist to check your machine at home. Discharge orders & Medications Prescriptions: New sertraline 25 mg tablet 25 mg PO DAILY 30 Days Qty: 30 RF: 0 Continued simvastatin 20 mg Tablet 20 mg PO BEDTIME RF: 0 metformin 500 mg Tablet Extended Release 24 Hr 500 mg PO DAILY RF: 0 cholecalciferol (vitamin D3) [Vitamin D3] 25 mcg (1,000 unit) Tablet 25 mcg PO DAILY RF: 0 hydrochlorothiazide 12.5 mg Tablet 12.5 mg PO DAILY RF: 0 Changed omeprazole 20 mg Tablet,Delayed Release (Dr/Ec) 40 mg PO DAILY 30 Days Qty: 30 RF: 0 Follow up/Referrals: Peter Trujillo MD [Primary Care Provider] - Diet/Activity/Treatments Diet: Diet as Tolerated and Carb-consistent/Diabetic Activity: As tolerated Discharge Data Primary Care Provider: Peter Trujillo Attending Provider: Hardik Albert Quality VTE Deep Vein Thrombosis/Pulmonary Embolism Present on Admission: No
--- NOTE | 2021-03-15 18:53 | PC.NURSE ---
Patient discharge at 18:50 to private vehicle via wheelchair, spouse present. Discharge instructions reviewed with patient. Patient stable, took shower prior to leaving.
== END 2021-03-15 18:50 | disposition home or self-care (01) ==
LOC: ED 11:17 → AC 12:08
PROVIDERS: Nurse Practitioner Family; Admitting Provider Internal Medicine; Emergency Provider Emergency Medicine; PCP Family Medicine; Referring Provider Emergency Medicine; Visit Provider Internal Medicine
DX: R07.9 Chest pain, unspecified (principal); R42 Dizziness and giddiness; R20.0 Anesthesia of skin; I10 Essential (primary) hypertension; E78.00 Pure hypercholesterolemia, unspecified; K21.9 Gastro-esophageal reflux disease without esophagitis; G47.33 Obstructive sleep apnea (adult) (pediatric); Z79.84 Long term (current) use of oral hypoglycemic drugs; R73.03 Prediabetes; Z68.32 Body mass index [BMI] 32.0-32.9, adult; F41.9 Anxiety disorder, unspecified; Z20.822 Contact with and (suspected) exposure to COVID-19
CPT/HCPCS: 36415; 70450; 70496; 70498; 70551; 71045; 78452; 80053; 80061; 81003; 82550; 82962; 83036; 83735; 84443; 84484; 85025; 85610; 85651; 85730; 86140; 87635; 93005; 93010; 93017; 93306; 96360; 96372; 99285; C9803; G0378; A9502; J1650; Q9967

== ENCOUNTER → 2021-05-30 11:03 | Outpatient (CLI) | payer OTHER, SELFPAY ==
[2021-03-14 14:07] VITALS: BMI 32.1
[2021-05-30 12:05] LABS: BUN Creatinine Ratio 13.8 (6-22); Blood Urea Nitrogen 17 mg/dL (9-20); Carbon Dioxide 31 mmol/L (22-32); Chloride 100 mmol/L (98-107); Estimated Glomerular Filt Rate > 60.0 mL/min (>60); Glucose 110 mg/dL (70-100); HEMOLYSIS < 15 (0-50); Potassium 3.8 mmol/L (3.4-5.1); Sodium 140 mmol/L (137-145)
[2021-05-30 12:35] LABS: Cortisol Random 10.7 ug/dL
[2021-06-05 22:09] LABS: Aldosterone/Renin Activity Rat 2.9 (0.0-30.0); Plama Renin, LC/MS/MS 4.226 ng/mL/hr (0.167-5.380)
== END ==
PROVIDERS: PCP Family Medicine; Referring Provider Internal Medicine Cardiovascular Disease; Visit Provider Internal Medicine Cardiovascular Disease
DX: R00.0 Tachycardia, unspecified (principal); R07.89 Other chest pain; E78.00 Pure hypercholesterolemia, unspecified; I10 Essential (primary) hypertension
CPT/HCPCS: 36415; 80048; 82088; 82384; 82533; 84244

== ENCOUNTER → 2021-08-05 14:39 | Outpatient (CLI) | payer OTHER, SELFPAY ==
[2021-03-14 14:07] VITALS: BMI 32.1
[2021-08-05 17:31] LABS: COVID19 -Nasal RAPID Negative (Negative)
== END ==
PROVIDERS: PCP Family Medicine; Referring Provider Family Medicine Sleep Medicine; Visit Provider Family Medicine Sleep Medicine
DX: Z20.822 Contact with and (suspected) exposure to COVID-19 (principal)
CPT/HCPCS: 87635; C9803

== ENCOUNTER 2021-08-07 10:05 | Day surgery (SDC) | payer OTHER, SELFPAY ==
[2021-03-14 14:07] VITALS: BMI 32.1
--- NOTE | 2021-08-07 | PATH_ITS ---
[facility] Accession Number: [id number] . 01 Material submitted: . PART A: gastrointestinal site - RANDOM GASTRIC BIOPSIES PART B: gastrointestinal site - GASTRIC POLYP PART C: esophagus - RANDOM ESOPHAGEAL BIOPSY . 01 Clinical history: . R/O EOE . 02 Diagnosis: A. Random Gastric Biopsies: Portions of gastric antral and body-type mucosa with mild chronic inflammation. Negative for Helicobacter organisms by immunohistochemistry. Negative for intestinal metaplasia. Negative for dysplasia or malignancy. . B. Gastric Polyp: Portions of fundic gland polyp x 2. Negative for Helicobacter organisms on H/E stain. Negative for dysplasia and malignancy. . C. Random Esophageal Biopsy: Squamous mucosa and squamous epithelium with no diagnostic abnormality. Intraepithelial eosinophils are not increased. Negative for dysplasia and malignancy. [facility] 08/13/2021 1524 Local . 02 Electronically signed: . Doreen Strickland MD, Pathologist NPI- [id number] . 01 Gross description: . Part A: RANDOM GASTRIC BIOPSIES: Received in formalin are 2 fragment(s) of adame, soft tissue measuring 0.2 x 0.2 x 0.2 cm to 0.2 x 0.2 x 0.1 cm submitted entirely in 1 cassette(s) Part B: GASTRIC POLYP: Received in formalin are 2 fragment(s) of adame, soft tissue measuring 0.6 x 0.4 x 0.3 cm to 0.4 x 0.3 x 0.3 cm submitted entirely in 1 cassette(s) Part C: RANDOM ESOPHAGEAL BIOPSY: Received in formalin are multiple fragment(s) of adame, soft tissue measuring 0.5 x 0.3 x 0.1 cm in aggregate submitted entirely in 1 cassette(s) /[facility] 08/09/2021 1305 Local . 02 Microscopic: . A. An immunohistochemical stain was performed to evaluate for Helicobacter organisms and is negative for Helicobacter organisms by immunohistochemical studies. The control stain showed appropriate reactivity. . . * This test was developed and its performance characteristics determined by [facility]. It has not been cleared or approved by the U.[place]. Food and Drug Administration. The FDA has determined that such clearance or approval is not necessary. This test is used for clinical purposes. It should not be regarded as investigational or for research. . 02 Pathologist provided ICD-10: R10.9 . 02 CPT . 518802, 485462, 284812, F14062 Performed at: 01 [facility] [address] [facility], [place], [place] [id number] MD Aron Ritter MD Phone: [phone] Performed at: 02 [facility] [address] [place] [id number] MD Viry Murillo MD Phone: [phone]
[2021-08-07 10:28] VITALS: BP 135/97; PULSE 95; RESP 16; TEMP 36.5; O2SAT 98; BMI 33.2
[2021-08-07] MEDS: SODIUM CHLORIDE 0.9% 1,000 ML 84 ML IV (10:46)
--- NOTE | 2021-08-07 11:10 | PM.HP.1 ---
History of Present Illness History of Present Illness Date Patient Seen: 08/07/21 Chief complaint: SDC Narrative: Chest pain unresponsive to medications Patient History Medical History (Updated 03/14/21 @ 21:47 by Hardik Albert DO) GERD (gastroesophageal reflux disease) HLD (hyperlipidemia) Hypertension Pre-diabetes Surgical History (Updated 03/14/21 @ 21:45 by Hardik Albert DO) No pertinent past surgical history Family & Social History Family History (Updated 03/14/21 @ 18:17 by Hardik Albert DO) Sister Diabetes mellitus Father Stroke Other Hypertension Social History: household members spouse Tobacco & Substance use: Smoking Status Never smoker alcohol intake never Substance Use Type does not use Meds Home Medications and Allergies Home Medications Medication Instructions Recorded Confirmed Type cholecalciferol (vitamin D3) 25 25 mcg PO DAILY 03/14/21 08/07/21 History mcg (1,000 unit) tablet (Vitamin D3) hydrochlorothiazide 12.5 mg tablet 12.5 mg PO DAILY 03/14/21 08/07/21 History simvastatin 20 mg tablet 20 mg PO BEDTIME 03/14/21 08/07/21 History omeprazole 20 mg tablet,delayed 40 mg PO DAILY 30 Days #30 tab 03/15/21 08/07/21 Rx release metoprolol succinate 25 mg 25 mg PO DAILY 08/07/21 08/07/21 History tablet,extended release 24 hr Allergies Allergy/AdvReac Type Severity Reaction Status Date / Time No Known Drug Allergies Allergy Verified 03/14/21 08:39 Exam Vital Signs (past 8 hours): - 08/07/21 10:28 Temperature 97.7 F Pulse Rate 95 H Respiratory Rate 16 Blood Pressure 135/97 H Pulse Oximetry 98 Oxygen Delivery Method Room Air Narrative Exam Narrative: Oropharynx free of lesions Chest clear to auscultation percussion Cardiac exam reveals no S3 or murmur Assessment & Plan Assessment & Plan narrative: Chest pain rule out esophagitis. EGD to be performed. Risks, benefits, and alternatives have been explained. Time Spent With Patient Critical Care time: I spent a total of [] minutes of critical care time on this patient's care today; this time is exclusive of procedural time.
--- NOTE | 2021-08-07 11:12 | PM.OP.EGD ---
Operative Date/Time/Diagnoses Date of procedure: 08/07/21 Procedure & Clinicians Study performed: EGD Indications: Chest pain Surgeon: Scarlett Branham Procedure Notes Procedure in detail: After informed consent was obtained the patient was placed in left lateral decubitus position. The video upper scope placed into the oropharynx and with the patient's help swelled into the esophagus. The esophagus stomach and duodenum were carefully examined. On withdrawal, retroflexed view the GE junction was performed. The scope was removed. The patient will the procedure well. Blood loss none Complications none Sedation mac Findings 1. Normal esophagus biopsies taken to rule out eosinophilic esophagitis 2. Striped gastric erythema biopsies taken to rule out Helicobacter 3. Few small scattered gastric polyps in the body. The largest of these was 6 mm and was biopsied x2. 4. Normal duodenal bulb and sweep Will await biopsy results but I suspect that they will not show anything to suggest a source for his chest discomfort.
[2021-08-07 11:31] VITALS: BP 112/77; PULSE 86; RESP 18; TEMP 36.1; O2SAT 96
[2021-08-07 11:36] VITALS: BP 109/78; PULSE 85; RESP 14; O2SAT 95
[2021-08-07 11:41] VITALS: BP 115/83; PULSE 84; RESP 15; O2SAT 95
[2021-08-07 11:53] VITALS: BP 114/78; PULSE 71; RESP 14; TEMP 36.2; O2SAT 97
== END 2021-08-07 12:44 | disposition home or self-care (01) ==
PROVIDERS: PCP Family Medicine; Referring Provider Internal Medicine Gastroenterology; Visit Provider Internal Medicine Gastroenterology
PROC: 0DJ08ZZ Inspection of Upper Intestinal Tract, Via Natural or Artificial Opening Endoscopic (ICD-10-PCS; CPT 43235; principal; 2021-08-07 11:30)
DX: K29.50 Unspecified chronic gastritis without bleeding (principal); R07.9 Chest pain, unspecified; M54.2 Cervicalgia; K31.7 Polyp of stomach and duodenum
CPT/HCPCS: 43239; J2704